=== PATIENT | female | born 1995 ===

== ENCOUNTER 2024-03-29 14:30 | Inpatient (IN) | payer OTHER ==
[~2024-03-29] VITALS: Ht 160 cm; Wt 67.1 kg
[2024-04-05] VITALS (8 sets, daily range): BP systolic 98–138; BP diastolic 61–87
[2024-04-05] MEDS ORDERED: PRENATAL + DHA1 EAC1 PO (10:12)
[2024-04-05] MEDS ORDERED: OXYTOCIN 500 ML IV SCH (10:15)
[2024-04-05 12:13] LABS: HEMATOCRIT 38.4 % (36.0-45.00); HEMOGLOBIN 13.5 g/dL (12.0-15.00); MEAN CELL VOLUME 93.7 fL (80.00-100.00); MEAN CORPUSCULAR HGB CONC 35.2 g/dl (32.0-36.0); PLATELET COUNT 235 K/uL (150-450); RED BLOOD COUNT 4.09 M/uL (4.00-6.00); RED CELL DISTRIBUTION WIDTH 13.9 % (11.5-14.5)
[2024-04-05 12:44] LABS: ALBUMIN 3.2 gm/dL (3.4-5.0); BILIRUBIN TOTAL 0.72 mg/dL (0.3-1.2); CALCIUM 9.5 mg/dL (8.5-10.1); CREATININE SERUM 0.39 mg/dL (0.55-1.02); GFR 197.14; POTASSIUM 4.12 mEq/L (3.5-5.1); TOTAL PROTEIN 7.2 gm/dL (6.4-8.2)
[2024-04-05 13:22] LABS: INR 0.97; PARTIAL THROMBOPLASTIN TIME 29.6 SECONDS (22.0-34.0); PROTHROMBIN TIME 10.6 SECONDS (9.0-11.5)
[2024-04-05] MEDS ORDERED: MORPHINE SULFATE 4 MG/ML CARTRIDGE IV PRN (15:00)
[2024-04-05] MEDS ORDERED: MEPERIDINE HCL/PF 25 MG/ML VIAL IV ONE (16:45)
[2024-04-05] MEDS ORDERED: PROMETHAZINE HCL 25 MG/ML AMPUL IV ONE (16:45)
[2024-04-05] MEDS ORDERED: DOCUSATE SODIUM 100MG CAP PO SCH (17:00)
[2024-04-05] MEDS ORDERED: OXYTOCIN 1,000 ML IV ONE (17:00)
[2024-04-05] MEDS ORDERED: IBUprofen 400 MG TABLET PO PRN (17:00)
[2024-04-05] MEDS ORDERED: CHLORHEXIDINE GLUCONATE 120 ML BOTTLE TP SCH (17:00)
[2024-04-05] MEDS ORDERED: ERYTHROMYCIN BASE OPHT 1GM EACH TUBE OP ONE (17:45)
[2024-04-06 01:03] VITALS: BP 120/80
[2024-04-06 07:26] LABS: HEMATOCRIT 29.5 % (36.0-45.00); HEMOGLOBIN 10.5 g/dL (12.0-15.00); MEAN CELL VOLUME 93.3 fL (80.00-100.00); MEAN CORPUSCULAR HEMOGLOBIN 33.2 pg (27.00-32.0); MEAN CORPUSCULAR HGB CONC 35.5 g/dl (32.0-36.0); PLATELET COUNT 228 K/uL (150-450); RED BLOOD COUNT 3.16 M/uL (4.00-6.00); RED CELL DISTRIBUTION WIDTH 13.8 % (11.5-14.5)
[2024-04-06 09:20] VITALS: BP 132/81
[2024-04-06 12:00] VITALS: BP 126/76
[2024-04-06 15:52] VITALS: BP 133/85
[2024-04-06] MEDS ORDERED: KETOROLAC TROMETHAMINE 10 MG TABLET PO SCH (18:00)
[2024-04-07 00:22] VITALS: BP 113/78
[2024-04-07 05:59] VITALS: BP 123/82
[2024-04-07 09:21] VITALS: BP 117/81
== END 2024-04-07 14:28 | disposition home or self-care (01) | DRG 807 ==
LOC: LDR 04-05 09:58 → OB/GYN 04-05 18:14 → SURH 05-05 14:45
PROVIDERS: Obstetrics & Gynecology; Obstetrics & Gynecology Gynecology; ADMIT Obstetrics & Gynecology Maternal & Fetal Medicine; ATTEND Obstetrics & Gynecology Maternal & Fetal Medicine
PROC: 10E0XZZ Delivery of Products of Conception, External Approach (ICD-10-PCS; principal; 2024-04-05)
PROC: 0KQM0ZZ Repair Perineum Muscle, Open Approach (ICD-10-PCS; 2024-04-05)
PROC: 4A1HXCZ Monitoring of Products of Conception, Cardiac Rate, External Approach (ICD-10-PCS; 2024-04-05)
DX: O70.1 Second degree perineal laceration during delivery (principal); Z37.0 Single live birth; Z3A.40 40 weeks gestation of pregnancy; Z20.822 Contact with and (suspected) exposure to COVID-19